=== PATIENT | female | born 1960 | race Caucasian/White ===

== ENCOUNTER 2017-05-08 18:03 | Inpatient (IN) | payer SELFPAY ==
--- NOTE | 2017-05-08 18:41 | RAD ---
PORTABLE CHEST ONE VIEW 05/08/17 at 5:51 p.m. HISTORY: Chest pain, dizziness. FINDINGS: Comparison made to earlier exam of 1:45 p.m. The heart size is normal. The lungs are expanded without focal areas of consolidation, pneumothorax or pleural effusions. IMPRESSION: No radiographic evidence of acute cardiopulmonary process. POS: [facility]
[2017-05-08] MEDS ORDERED: Nitroglycerin 2% Ointment 1 INCH/1 GM Packet ONE (18:45)
[2017-05-08] MEDS ORDERED: Acetaminophen 500 MG TAB ONE (19:01)
[2017-05-08 19:15] LABS: Troponin I Less than 0.010 ng/mL (< 0.028)
[2017-05-08] MEDS ORDERED: Enoxaparin Sodium 30 MG/0.3 ML SYRINGE ONE (19:37)
[2017-05-08] MEDS ORDERED: Enoxaparin Sodium 100 MG/ML SYRINGE ONE (19:37)
[2017-05-08] MEDS ORDERED: Acetaminophen 325 MG TAB PO PRN (20:32)
[2017-05-08] MEDS ORDERED: Nitroglycerin 0.4 MG TAB (25 Tab Bottle) SL PRN (20:32)
[2017-05-08] MEDS ORDERED: Ondansetron HCl/PF 4 MG/2 ML Vial IVP PRN (20:32)
[2017-05-08] MEDS ORDERED: Ondansetron ODT 4 MG TAB SL PRN (20:32)
--- NOTE | 2017-05-08 20:38 | PDOC.EVN ---
Event Note - Event Note Event Note: H&P Dictated 1. Unstable angina 2. HTN 3. Pain plan: see orders
[2017-05-08 21:34] LABS: Troponin I Less than 0.010 ng/mL (< 0.028)
[2017-05-08] MEDS ORDERED: Nitroglycerin 2% Ointment 1 INCH/1 GM Packet TOP SCH (22:00)
[2017-05-08] MEDS: HYDROcodone/Acetaminophen 5/325 mg Tablet PO PRN (22:44)
[2017-05-09 00:55] LABS: Troponin I 0.013 ng/mL (< 0.028)
[2017-05-09] MEDS: Nitroglycerin 2% Ointment 1 INCH/1 GM Packet TOP SCH ×4 (06:06→21:08)
[2017-05-09] MEDS: Carvedilol 6.25 MG TAB PO SCH ×2 (08:03→21:08)
[2017-05-09] MEDS: Aspirin 325 MG TAB PO SCH (08:03)
--- NOTE | 2017-05-09 08:04 | HP ---
DATE OF ADMISSION: 05/08/2017 CHIEF COMPLAINT: Chest pain. HISTORY OF PRESENT ILLNESS: The patient is a 56-year-old female with past medical history of hypert ension, now came to the hospital because of chest pain. The patient stated also he started having c hest pain 3 days back, intermittent, associated with dyspnea, substernal, radiates to the left shoul ronnie also, spasm, and to the back and shoulder blades spasm to tightness kind of pain 05/12, currentl y 2-3/, intermittent, then associated with some nausea also this morning and vomiting also complai ns of some dizziness with the chest pain. Patient's symptoms persisted that is why the patient came from outside ER and patient was found to have diffuse ST depressions, so patient was given a dose o f Lovenox. Repeat EKG showed some improvement in the ST depressions. The patient currently denies any pain at this time. PAST MEDICAL HISTORY: Hypertension. PAST SURGICAL HISTORY: Hysterectomy. ALLERGIES: No known drug allergies. MEDICATIONS: Reviewed. FAMILY HISTORY: Denies any heart problems. SOCIAL HISTORY: Denies smoking, denies alcohol, denies any drugs. REVIEW OF SYSTEMS: Constitutional: Denies any fever, denies any chills. Eyes: Denies any vision problems. Ears: De nies any hearing loss. Neck: Denies any neck pain. Cardiovascular: Positive for chest pain. Res piratory: Positive for dyspnea. Gastrointestinal: Positive for nausea, vomiting. Musculoskeletal : Denies any joint deformities. Cranial nerve system: Positive for dizziness. Psychiatric: ____ _ anxiety. Integumentary: Denies any rash. All other review of systems are reviewed and are negat candido. PHYSICAL EXAMINATION: CONSTITUTIONAL/VITAL SIGNS: At the time of H\T\P performed, blood pressure is 136/48, heart rate 68 , pulse ox 97%. GENERAL: The patient appears comfortable. HEENT: Pupils equal, round and reacting. Anterior nares patent. Nose normal. Ears normal. Teet h intact. Tongue is moist. NECK: Supple, no JVD. CARDIOVASCULAR SYSTEM: S1, S2 present. Regular rate and rhythm, no murmurs, no rubs, no gallops. RESPIRATORY SYSTEM: No wheezing, no rhonchi. Breath sounds bilaterally. GASTROINTESTINAL: Abdomen is soft, nontender, no guarding, no organomegaly, no masses felt. MUSCULOSKELETAL: No edema. CRANIAL NERVE SYSTEM: Awake, follows commands. Strength intact, sensory intact. PSYCHIATRIC: Mood appropriate at this time. GENITOURINARY: No suprapubic tenderness. No inguinal tenderness. INTEGUMENTARY: No rashes seen. LABORATORY DATA: At the time of H\T\P performed, troponin less than 0.010. BMP showed sodium 144, potassium 3.6, chloride 105, CO2 of 26, BUN of 17, creatinine 0.97, calcium 10.1. AST 21, ALT 17, a lbumin 4.5, globulin 3.4. White count 8.7, hemoglobin 13.4, platelet count is 254. EKG showed ST depressions in V4, V5 and V2. ASSESSMENT AND PLAN: The patient is 56-year-old female. 1. Unstable angina. Plan to continue nitro paste. Already given dose of Lovenox. We will admit p atient to the IMU for close monitoring. If the patient has recurrent chest pain, we will start the patient on nitro drip. We will place patient on nitro paste and we will continue aspirin and statin s. 2. Hypertension. Monitor blood pressures. Continue home blood pressure medications. 3. Pain, p.r.n. pain medications. The case was discussed in detail with the patient.
[2017-05-09] MEDS ORDERED: FLU VACC QS2017-18 36 mo. & older 0.5 ML SYRINGE IM ONE (09:00)
[2017-05-09 10:21] LABS: #Eosinphils 0.1 thou/uL (0.0-0.7); #Lymphocytes 2.4 thou/uL (1.20-3.40); #Monocytes 0.7 thou/uL (0.11-0.59); #Neutrophils 4.1 thou/uL (1.40-6.50); %Basophils 0.3 % (0.0-1.0); %Eosinophils 0.8 % (0.0-10.0); %Lymphocytes 33.4 % (21.0-51.0); %Monocytes 9.3 % (0.0-10.0); Hematocrit 41.1 % (36.0-47.0); Mean Platelet Volume 7.8 fL (7.4-10.4); Red Blood Cell (RBC) Count 4.36 mill/uL (4.20-5.40); White Blood Cell (WBC) Count 7.2 thou/uL (4.8-10.8)
[2017-05-09 10:43] LABS: Anion Gap 12 mmol/L (10-20); BUN (Urea Nitrogen) 21 mg/dL (9.8-20.1); Calc. Creatinine Clearance 121 mL/min (70-130); Calcium 9.6 mg/dL (7.8-10.44); Carbon Dioxide 24 mmol/L (22-29); Chloride 107 mmol/L (98-107); Estimated GFR-MDRD 64
[2017-05-09] MEDS: HYDROcodone/Acetaminophen 5/325 mg Tablet PO PRN ×2 (11:57→23:17)
[2017-05-09] MEDS ORDERED: Lisinopril/Hydrochlorothiazide 10 mg/12.5 mg Tablet PO SCH (14:30)
--- NOTE | 2017-05-09 14:36 | CON ---
CARDIOLOGY CONSULTATION REPORT DATE OF CONSULTATION: 05/09/2017 ROOM #: B3. ADMITTING DOCTOR: Dr. Velazquez. PRIMARY CARE PHYSICIAN: Dr. Mera CONSULTING DOCTOR: Dr. Samano. REASON FOR CARDIOLOGY CONSULTATION: Unstable angina. HISTORY OF PRESENT ILLNESS: Ms. Lott is a 56 years old female with significant history of hypertension. The patient experienced an achy-like chest pain in her chest with some pressure between the shoulder blade since last Thursday, and then 05/08 she started feeling heaviness along with those symptoms. She also started having a pounding-like sensation to the back of neck and between the shoulder blade all morning yesterday on 05/08/2017 while she was working. So, in the afternoon, she decided to present to the [facility] for further evaluation and treatment. She also has nausea, vomiting, fatigue, and shortness of breath. She denies any dizziness or numbness in the left arm or diaphoresis at that time. At this moment, during the assessment, she still feels heaviness-like discomfort in her chest and feels nauseated and also pounding-like sensation between the shoulder blade. She does not have any significant cardiac-related history and she never had any cardiac studies prior to this admission. However, she has a significant family history of myocardial infarction. Two of her sisters underwent stent placement when they were under the age of 60. The patient's noticed some edema around the bilateral ankles end of the day, almost every day, but resolved in the next morning. PAST MEDICAL HISTORY: 1. Hypertension. 2. Asthma. 3. Common cold for 1 month, and she is still having cough with clear sputum. 4. Seasonal allergies. PAST SURGICAL HISTORY: Total hysterectomy. FAMILY HISTORY: Significant for coronary artery disease in her both paternal and maternal sides. She had 2 sisters who have a history of multiple stents when they were in their 40s and 50s. There are hypertension and diabetes history in her maternal side. SOCIAL HISTORY: She is . She has one son, who is alive and well. She denies any smoke, alcohol, or illicit drug abuse. ALLERGIES: She has no known drug allergies. HOME MEDICATIONS: Lisinopril/hydrochlorothiazide 10 mg/12.5 mg once a day, aspirin 81 mg once a day, albuterol as needed. REVIEW OF SYSTEMS: The following complete review of systems was negative, unless otherwise mentioned in the HPI or below. Constitutional: Weight loss or weight gain, sense of well being, ability to conduct usual activities, exercise tolerance. Skin: Rash, itching, changes in hair growth or loss, nail change, breast lump, tenderness, swelling, nipple discharge. Eyes: She wears reading glasses, but negative to vision change, double vision, tearing, blind spots, pain. HENT: She is having a headache, at this moment, that is possible due to Nitro-patch; however, she denies any history of headache last 3 months and denied vertigo, lightheadedness, dizziness, nose bleeding, cold, obstruction. No other discharge, dental difficulty, gingival bleeding, dentures , neck stiffness, pain, tenderness, mass in the thyroid or other areas. Cardiovascular: Prior to this admission until last Thursday, she denies any precordial pain, substernal distress, palpitations, syncope, dyspnea on exertion , orthopnea, nocturnal dyspnea, edema, cyanosis, heart murmurs, claudication. Respiratory: Wheezing, stridor, hemoptysis. Gastrointestinal: Poor appetite, dysphagia, indigestion, abdominal pain, heartburn, nausea or vomiting before last Thursday, jaundice, constipation, diarrhea, abnormal stool, recent change in the bowel habit or hemorrhoid. Genitourinary: Urgency, frequency, dysuria, nocturia, hematuria, polyuria, oliguria, unusual color of urine. Musculoskeletal: Pain, swelling, redness, or heat of muscle or joint, limitation of motion, muscular weakness, atrophy, cramps. Neurologic: Convulsion seizure, paralyses, tremor, incoordination. Psychiatric: Emotional problem, anxiety, depression, previous psychiatric care, unusual perception, hallucination. PHYSICAL EXAMINATION: VITAL SIGNS: Blood pressure 162/60, heart rate 64 with sinus rhythm, respiratory rate 18, temperature 98.3, oxygen level 96% with room air. GENERAL: Well-developed, well-nourished, without any acute distress. HEAD: Normocephalic, atraumatic. EYES: Extraocular muscle movements are intact. ENT: Oral and nasal mucosa are moist without lesion. NECK: No JVD. Neck is supple and normal range of motion. LUNGS: Clear to auscultate bilaterally. No wheezing, rales, or rhonchi noted. CARDIOVASCULAR: Regular rate and rhythm, normal S1, S2. There are no S3 or S4. There is murmur on the right upper sternal border, but negative to hives, thrill, bruits, or rubs. There are 2+ pulses in bilateral dorsal pedis, posterior tibial, popliteal and femoral arteries. Carotid pulse present. No edema in the bilateral lower extremities. ABDOMEN: Soft and nontender or mass to palpate, nondistended. Bowel sounds are present. MUSCULOSKELETAL: Able to move all extremities. SKIN: Warm and dry. No skin rash, lesion, or bruise noted. NEUROLOGIC: Alert, oriented x4, awake, normal affect, nonfocal. PSYCHIATRIC: Mood and affect are normal. IMAGIN-lead EKG in ER showing sinus rhythm, minimal ST-depression, but is 1 mm. LABORATORY DATA: WBC 7.2, hemoglobin 13.3, hematocrit 41.1, platelets 228. Chemistry: Sodium 139, potassium 4.1, BUN 21, creatinine 0.90, glucose 78, and troponins less than 0.01 x2 and the third one is 0.013, total cholesterol 183, triglycerides 76, LDL 127, HDL 41, and the chest x-ray showing no evidence of acute cardiopulmonary process, and the echocardiogram was taken today and the result is pending at this moment. ASSESSMENT AND PLAN: 1. Unstable angina. Although patient's cardiac enzymes and troponin were negative, due to patient's significant family history of myocardial infarction and the patient's current symptoms, a stress test is going to be ordered today. At this moment, the patient is on aspirin 325 mg daily, beta deondre, and Nitro-paste. 2. Hypertension. Her blood pressure is relatively stable except last reading. At this moment, she is on Carvedilol 6.25 mg twice a day. We my resume her current home medications if needed. 3. Asthma. Her condition is stable at this moment. We would like to continue to monitor. 4. Murmur. Echocardiogram was taken today and that result is pending at this moment. We would like to adjust the patient's plan of care depended on the patient's echocardiogram result. Thank you very much for allowing the Cardiology service to participate in care of this patient. We will follow along with the patient's care team and make further recommendations as appropriate. LUDIN
--- NOTE | 2017-05-09 15:55 | CON ---
DATE OF CONSULTATION: 05/09/2017 INDICATION FOR CONSULTATION: A 56-year-old female with chest pain, abnormal EKG findings. HISTORY OF PRESENT ILLNESS: This is a very pleasant 56-year-old female with a history of hypertensi on, who presented to the hospital with chest pain. She had some EKG changes, which showed some evid ence of ST-segment depression, but no ST-segment elevation. Her enzymes have been negative. The pa in started several days ago. Approximately a month ago, she did have a cough and possibly pneumonia , and had some associated pain with this. She also has been having some nausea associated with the chest discomfort. She was given Lovenox in the emergency room and had an improvement in the ST-segm ent depression. She is now presently in the Intensive Care Unit. She has been ruled out for myocar dial infarction. At this time, she still continues to have some chest discomfort, which she describ es at times being sharp pain and sometimes she describes as being pressure, and she also has some di scomfort underneath the left inframammary area. Otherwise, she remains stable from a cardiac standp oint. She does have some problems with hypertension. Her vital signs showed blood pressure is anyw here between 117/55 to 162/60. She did have nitroglycerin paste on, this was removed due to the hea daches and she may need to have further medications. She was on SOHAM inhibitors in the past, but the se have been held at this time. We would need to reinstate these medications and she will need to h ave nitroglycerin if the chest discomfort continues or increases. PAST MEDICAL HISTORY: Significant for the hypertension. She has also had a history of possible pne umonia recently. She has had a hysterectomy. She has a history of possible hypercholesterolemia. She has had 2 episodes of pneumonia. ALLERGIES: She has no known drug allergies. MEDICATIONS: At home include lisinopril/hydrochlorothiazide, aspirin, and also allergy medications. FAMILY HISTORY: She does have some history of heart disease in her family. SOCIAL HISTORY: She has no alcohol or tobacco abuse. She works as a caregiver. REVIEW OF SYSTEMS: A 12-point review of systems was relatively unremarkable except what was noted i n the history of present illness. PHYSICAL EXAMINATION: GENERAL: Reveals a well-developed, well-nourished female, who is in no acute distress at this time. VITAL SIGNS: Her blood pressure, at this time, is 162/60, earlier it was 124/57, her heart rate is in the 50s-60s and she has a normal sinus rhythm, respiratory rate 16-18 without significant problem s. She is afebrile. HEENT: Exam shows the head to be normocephalic and atraumatic. Carotid pulses are present without any bruits. CHEST: Clear to auscultation. Denies any rales, rhonchi, or wheezing. CARDIOVASCULAR: Exam reveals a regular rate and rhythm, normal S1 and S2. There is no S3, S4. The re were no significant murmurs, heaves, thrills, bruits, or rubs noted. ABDOMEN: Exam shows obesity with positive bowel sounds. No organomegaly or masses were noted. Fem oral pulses are present. EXTREMITIES: Shows no clubbing, cyanosis, or edema. Pedal pulses are also present. NEUROLOGIC: The patient appears to be fully intact. SKIN: Warm and dry. LABORATORY DATA: Her cardiac enzymes have been negative. Her hemoglobin is 13.3. Creatinine is 0. 9, potassium 4.1. Her blood sugar is only 78. LDL was 127. IMPRESSION: 1. Chest pain, somewhat atypical, but does have some EKG changes. For someone who has had chest pa in for several days and that she continues to have some chest discomfort, the enzymes still remain n egative. Given her family history as well as her presentation with the EKG findings, it may be best to proceed with a cardiac catheterization to rule out evidence of underlying coronary artery diseas e since a stress test in her case may still miss 10%-15% of the population. 2. History of hypertension. We will continue her medications. She has been placed on nitroglyceri n, does not seem to be able to tolerate this very well. We will also put her back on her SOHAM inhibi tor with the hydrochlorothiazide. 3. History of hypercholesterolemia. Her cholesterol level, LDL, was 127, and we will need to initi ate statin medications. I did explain to her the procedure and the risks as far as cardiac catheterization was concerned to include bleeding, infection, possibility of myocardial infarction, CVA, renal insufficiency, allergi c contrast reaction, she understands, and even the possibility of , and we will plan for a card iac catheterization on Thursday unless the patient becomes unstable in the interim.
--- NOTE | 2017-05-09 17:01 | PDOC.PN ---
- Subjective Encounter Start Date: 05/09/17 Encounter Start Time: 10:20 Pt seen for followup re: chest pain. Denies nausea or vomiting. Reports on and off chest pain. No vomiting. No fevers. - Objective Vital Signs & Weight: Vital Signs (12 hours) Temp Pulse Resp BP Pulse Ox 05/09/17 15:00 97.7 F 54 L 20 134/56 L 94 L 05/09/17 14:49 64 05/09/17 11:00 98.3 F 64 18 162/60 H 96 05/09/17 08:00 97.6 F 58 L 18 98 05/09/17 07:00 97.6 F 58 L 18 137/55 L 98 Weight Admit Weight 247 lb Weight 247 lb 1.6 oz I&O: 05/08/17 05/09/17 05/10/17 06:59 06:59 06:59 Intake Total 30 Output Total 180 Balance -150 Result Diagrams: 05/09/17 09:56 05/09/17 09:56 Phys Exam - Physical Examination Morbid obesity HEENT: PERRLA, moist MMs, sclera anicteric, oral pharynx no lesions Neck: no JVD, supple, full ROM Respiratory: no wheezing, no rales, no rhonchi, clear to auscultation bilateral Cardiovascular: RRR, no rub Gastrointestinal: soft, non-tender, positive bowel sounds distention+ Musculoskeletal: no edema, pulses present Neurological: non-focal, normal sensation, moves all 4 limbs Lymphatic: no nodes Psychiatric: normal affect, A&O x 3 Skin: no rash, normal turgor, cap refill <2 seconds Dx/Plan (1) Chest pain Code(s): R07.9 - CHEST PAIN, UNSPECIFIED Status: Acute (2) Unstable angina Status: Suspected (3) HTN (hypertension) Code(s): I10 - ESSENTIAL (PRIMARY) HYPERTENSION Status: Chronic (4) Dyslipidemia Code(s): E78.5 - HYPERLIPIDEMIA, UNSPECIFIED Status: Chronic - Plan * . Chest pain on and off, await echo and cardiology input.\ Start statin. Monitor vital signs, titrate antihypertensives as needed. Review of Systems - Review of Systems Constitutional: negative: Fever, Chills, Sweats, Weakness, Malaise Cardiovascular: Chest Pain, Palpitations. negative: Orthopnea, Paroxysmal Noc. Dyspnea, Edema, Light Headedness Gastrointestinal: Nausea. negative: Vomiting, Abdominal Pain, Diarrhea, Constipation, Melena, Hematochezia Genitourinary: negative: Dysuria, Frequency, Incontinence, Hematuria, Retention Skin: negative: Rash, Lesions, Ruddy, Bruising - Medications/Allergies Allergies/Adverse Reactions: Allergies Allergy/AdvReac Type Severity Reaction Status Date / Time No Known Allergies Allergy Verified 05/08/17 21:12 Medications: Current Medications Hydrocodone Bitart/Acetaminophen ([place] 5/325) 1 tab PO Q4H PRN PRN Reason: Mild Pain (1-3) Last Admin: 05/09/17 11:57 Dose: 1 tab Aspirin (Aspirin) 325 mg PO DAILY [facility] Last Admin: 05/09/17 08:03 Dose: 325 mg Carvedilol (Coreg) 6.25 mg PO BID [facility] Last Admin: 05/09/17 08:03 Dose: 6.25 mg Lisinopril/HCTZ (Prinizide 10-12.5) 1 tab PO DAILY [facility] Morphine Sulfate (Morphine Sulfate) 2 mg SLOW IVP Q4H PRN PRN Reason: Moderate to Severe Pain (6-10) Nitroglycerin (Nitro-Bid 2% Ointment) 0.5 inch TOP Q8HR [facility] Last Admin: 05/09/17 14:53 Dose: 0.5 inch Sodium Chloride (Flush - Normal Saline) 10 ml IVF PRN PRN PRN Reason: Saline Flush
--- NOTE | 2017-05-09 17:51 | CON ---
DATE OF CONSULTATION: 05/09/2017 HISTORY OF PRESENT ILLNESS: Ms. Lott is a very pleasant 56-year-old female. She has a history of exertional chest pain radiating to her left shoulder for several months. This has been occurring with increasing frequency and severity. It typically last 5-10 minutes. It has been for the most part always with exertion. She reached a point where she said she could no t tolerate because this was happening frequently yesterday, so she presented to the emergency room a nd subsequently was admitted. Her only complaint now is a headache. She denies chest pain. PAST MEDICAL HISTORY: Remarkable for hypertension and hysterectomy. FAMILY HISTORY: Positive for coronary artery disease at a young age. She has a sister that had cor onary artery disease at 42. SOCIAL HISTORY: She is a nonsmoker, nondrinker. REVIEW OF SYSTEMS: Otherwise negative. PHYSICAL EXAMINATION: GENERAL: She is afebrile, heart rate 54, respiratory rate 20, oximetry is 94, blood pressure 134/56 . HEENT: Pupils are equal. Sclerae is anicteric. NECK: Supple. LUNGS: Clear. HEART: Regular rhythm. S1 and S2 are normal. ABDOMEN: Soft and nontender. EXTREMITIES: Without asymmetry. LABORATORY DATA: White count 7.2, hemoglobin 13.3, platelets 228. Sodium 139, potassium 4.1, chlor vaishali 107, bicarbonate 24, BUN 21, creatinine 0.9, glucose 78. IMPRESSION AND PLAN: Unstable angina. History certainly suggestive of an increasing frequency edgar allegra of angina. I believe cardiac catheterization is planned. I will be happy to follow with the ot her physicians caring for her.
[2017-05-09] MEDS ORDERED: Ondansetron HCl/PF 4 MG/2 ML Vial SLOW IVP PRN (18:36)
[2017-05-09] MEDS: Atorvastatin Calcium 20 MG TAB PO SCH (21:08)
[2017-05-10] MEDS ORDERED: Ondansetron HCl/PF 4 MG/2 ML Vial SLOW IVP PRN (00:02)
[2017-05-10] MEDS: Melatonin 3 MG TAB PO PRN ×2 (00:14→21:02)
[2017-05-10 04:48] LABS: #Eosinphils 0.1 thou/uL (0.0-0.7); #Lymphocytes 2.2 thou/uL (1.20-3.40); #Monocytes 0.6 thou/uL (0.11-0.59); #Neutrophils 4.5 thou/uL (1.40-6.50); %Basophils 0.6 % (0.0-1.0); %Eosinophils 1.8 % (0.0-10.0); %Lymphocytes 29.6 % (21.0-51.0); %Monocytes 7.9 % (0.0-10.0); Hematocrit 38.7 % (36.0-47.0); Mean Platelet Volume 7.4 fL (7.4-10.4); Red Blood Cell (RBC) Count 4.16 mill/uL (4.20-5.40); White Blood Cell (WBC) Count 7.5 thou/uL (4.8-10.8)
[2017-05-10] MEDS: Nitroglycerin 2% Ointment 1 INCH/1 GM Packet TOP SCH ×3 (05:08→21:02)
[2017-05-10 05:12] LABS: Anion Gap 9 mmol/L (10-20); BUN (Urea Nitrogen) 25 mg/dL (9.8-20.1); Calc. Creatinine Clearance 83 mL/min (70-130); Calcium 9.1 mg/dL (7.8-10.44); Carbon Dioxide 28 mmol/L (22-29); Chloride 106 mmol/L (98-107); Estimated GFR-MDRD 42
[2017-05-10] MEDS: Aspirin 325 MG TAB PO SCH (09:04)
[2017-05-10] MEDS: Lisinopril/Hydrochlorothiazide 10 mg/12.5 mg Tablet PO SCH (09:04)
[2017-05-10] MEDS: Carvedilol 6.25 MG TAB PO SCH (09:04)
--- NOTE | 2017-05-10 13:01 | PDOC.PN ---
- Subjective Encounter Start Date: 05/10/17 Encounter Start Time: 09:40 Pt seen for followup re: chest pain. Reports occ chest pain. No nausea or vomiting. No fevers. - Objective MAR Reviewed: Yes Vital Signs & Weight: Vital Signs (12 hours) Temp Pulse Resp BP BP Pulse Ox 05/10/17 11:55 97.4 F L 52 L 14 107/59 L 96 05/10/17 09:04 55 L 112/59 L 05/10/17 08:00 97.8 F 55 L 14 94 L 05/10/17 07:42 97.8 F 55 L 14 112/59 L 94 L 05/10/17 04:30 98.3 F 50 L 18 124/61 96 Weight Admit Weight 247 lb Weight 247 lb I&O: 05/09/17 05/10/17 05/11/17 06:59 06:59 06:59 Intake Total 30 1100 Output Total 180 Balance -150 1100 Result Diagrams: 05/10/17 04:26 05/10/17 04:26 EKG Reviewed by me: Yes (Tele: NSR) Phys Exam - Physical Examination Constitutional: NAD HEENT: moist MMs, oral pharynx no lesions Neck: supple Respiratory: no wheezing, no rales, no rhonchi, clear to auscultation bilateral Cardiovascular: RRR, no rub Gastrointestinal: soft, non-tender, no distention, positive bowel sounds Musculoskeletal: pulses present Neurological: non-focal, normal sensation, moves all 4 limbs Lymphatic: no nodes Psychiatric: normal affect, A&O x 3 Skin: no rash, normal turgor, cap refill <2 seconds Dx/Plan (1) Chest pain Code(s): R07.9 - CHEST PAIN, UNSPECIFIED Status: Acute (2) Unstable angina Status: Suspected (3) HTN (hypertension) Code(s): I10 - ESSENTIAL (PRIMARY) HYPERTENSION Status: Chronic (4) Dyslipidemia Code(s): E78.5 - HYPERLIPIDEMIA, UNSPECIFIED Status: Chronic - Plan DVT proph w/lovenox * . Continue to monitor on telemetry. Continue aspirin, Lovenox. Monitor vital signs, titrate antihypertensives as neeed. For cath tomorrow. Review of Systems - Review of Systems Constitutional: negative: Fever, Chills, Sweats, Weakness, Malaise ENT: negative: Ear Pain, Ear Discharge, Nose Pain, Nose Discharge, Nose Congestion, Mouth Pain, Mouth Swelling, Throat Pain, Throat Swelling, Other Respiratory: negative: Cough, Dry, Shortness of Breath, Hemoptysis, SOB with Excertion, Pleuritic Pain, Sputum, Wheezing Cardiovascular: Chest Pain. negative: Palpitations, Orthopnea, Paroxysmal Noc. Dyspnea, Edema, Light Headedness Gastrointestinal: negative: Nausea, Vomiting, Abdominal Pain, Diarrhea, Constipation, Melena, Hematochezia - Medications/Allergies Allergies/Adverse Reactions: Allergies Allergy/AdvReac Type Severity Reaction Status Date / Time No Known Allergies Allergy Verified 05/08/17 21:12 Medications: Current Medications Hydrocodone Bitart/Acetaminophen ([place] 5/325) 1 tab PO Q4H PRN PRN Reason: Mild Pain (1-3) Last Admin: 05/09/17 23:17 Dose: 1 tab Aspirin (Aspirin) 325 mg PO DAILY [facility] Last Admin: 05/10/17 09:04 Dose: 325 mg Atorvastatin Calcium (Lipitor) 20 mg PO HS [facility] Last Admin: 05/09/17 21:08 Dose: 20 mg Carvedilol (Coreg) 6.25 mg PO BID [facility] Last Admin: 05/10/17 09:04 Dose: 6.25 mg Lisinopril/HCTZ (Prinizide 10-12.5) 1 tab PO DAILY [facility] Last Admin: 05/10/17 09:04 Dose: 1 tab Melatonin (Melatonin) 6 mg PO HSPRN PRN PRN Reason: Insomnia Last Admin: 05/10/17 00:14 Dose: 6 mg Morphine Sulfate (Morphine Sulfate) 2 mg SLOW IVP Q4H PRN PRN Reason: Moderate to Severe Pain (6-10) Nitroglycerin (Nitro-Bid 2% Ointment) 0.5 inch TOP Q8HR [facility] Last Admin: 05/10/17 05:08 Dose: 0.5 inch Ondansetron HCl (Zofran) 4 mg SLOW IVP Q4H PRN PRN Reason: Nausea/Vomiting Last Admin: 05/10/17 00:14 Dose: 4 mg Sodium Chloride (Flush - Normal Saline) 10 ml IVF PRN PRN PRN Reason: Saline Flush
--- NOTE | 2017-05-10 13:41 | PDOC.CTH ---
<Jil Harkins - Last Filed: 05/10/17 13:39> Cardiology Progress Note - Subjective The pt was seen and examined. No overnight events. No cardiac complaints. She felt mild discomfort in her chest and mild dizziness in AM while she was having sponge bath. At this moment, she denied any cardiac complaints. - Objective Vital Signs Temp Pulse Resp BP BP Pulse Ox 05/10/17 11:55 97.4 F L 52 L 14 107/59 L 96 05/10/17 09:04 55 L 112/59 L 05/10/17 08:00 97.8 F 55 L 14 94 L 05/10/17 07:42 97.8 F 55 L 14 112/59 L 94 L 05/10/17 04:30 98.3 F 50 L 18 124/61 96 Admit Weight 247 lb Weight 247 lb 05/09/17 05/10/17 05/11/17 06:59 06:59 06:59 Intake Total 30 1100 Output Total 180 Balance -150 1100 - Physical Examination General/Neuro: alert & oriented x3 Neck: no JVD present Lungs: CTA Heart: RRR Abdomen: soft Extremities: other: (No edema) - Telemetry Telemetry Rhythm: SB and SR 50-60s - Labs Result Diagrams: 05/10/17 04:26 05/10/17 04:26 Troponin/CKMB Troponin I 0.013 ng/mL (< 0.028) 05/09/17 00:23 - Assessment/Plan 1. Chest pain - Cardiac cath tomorrow by Dr Samano; on ASA, BBlocker and SOHAM med; The pt denied any questions or concerns related to cardiac cath 2. HTN - decrease Coreg from 6.25 mg to 3.125mg BID for dizziness 3. Dyslipidemia - on Statin medication MAR Reviewed Review of Systems - Review of Systems Constitutional: reports: no symptoms reported EENTM: reports: no symptoms reported Respiratory: reports: no symptoms reported Cardiac (ROS): reports: no symptoms reported ABD/GI: reports: no symptoms reported : reports: no symptoms reported Musculoskeletal: reports: no symptoms reported Skin: reports: no symptoms reported <Quang Samano - Last Filed: 05/10/17 18:30> Cardiology Progress Note - Objective Vital Signs Temp Pulse Resp BP BP Pulse Ox 05/10/17 16:00 97.4 F L 58 L 18 143/71 H 98 05/10/17 11:55 97.4 F L 52 L 14 107/59 L 96 05/10/17 09:04 55 L 112/59 L 05/10/17 08:00 97.8 F 55 L 14 94 L 05/10/17 07:42 97.8 F 55 L 14 112/59 L 94 L Admit Weight 247 lb Weight 247 lb 05/09/17 05/10/17 05/11/17 06:59 06:59 06:59 Intake Total 30 1100 Output Total 180 Balance -150 1100 - Labs Result Diagrams: 05/10/17 04:26 05/10/17 04:26 Troponin/CKMB Troponin I 0.013 ng/mL (< 0.028) 05/09/17 00:23 - Assessment/Plan Pt. was seen and eval. by me. I agree with the A\P by the S[employer]IOR [employer] DEVEL[employer]CHIT[employer]. We discussed the cardiac cath again and she is ready to proceed.
--- NOTE | 2017-05-10 15:00 | PRG ---
DATE OF SERVICE: 05/10/2017 Stefania Lott has been moved out to the intermediate care unit. She remains in sinus rhythm. Her bl ood pressures have been stable. Her lab work is unchanged essentially a creatinine of 1.3. She is tentatively on the schedule for cardiac catheterization. We will await these results. If she is found to have some surgical coronary disease, then she will need pulmonary function testin g prior to surgery.
[2017-05-10] MEDS ORDERED: Communication Order-Pharmacy FS SCH (18:30)
[2017-05-10] MEDS: Carvedilol 3.125 MG TAB PO SCH (21:03)
[2017-05-10] MEDS: Atorvastatin Calcium 20 MG TAB PO SCH (21:03)
[2017-05-11 04:39] LABS: #Eosinphils 0.1 thou/uL (0.0-0.7); #Lymphocytes 2.1 thou/uL (1.20-3.40); #Monocytes 0.5 thou/uL (0.11-0.59); #Neutrophils 2.7 thou/uL (1.40-6.50); %Basophils 0.4 % (0.0-1.0); %Eosinophils 2.4 % (0.0-10.0); %Lymphocytes 38.3 % (21.0-51.0); %Monocytes 9.6 % (0.0-10.0); Hematocrit 40.1 % (36.0-47.0); Mean Platelet Volume 8.2 fL (7.4-10.4); Red Blood Cell (RBC) Count 4.27 mill/uL (4.20-5.40); White Blood Cell (WBC) Count 5.5 thou/uL (4.8-10.8)
[2017-05-11 04:51] LABS: Anion Gap 11 mmol/L (10-20); BUN (Urea Nitrogen) 23 mg/dL (9.8-20.1); Calc. Creatinine Clearance 121 mL/min (70-130); Calcium 9.5 mg/dL (7.8-10.44); Carbon Dioxide 29 mmol/L (22-29); Chloride 104 mmol/L (98-107); Estimated GFR-MDRD 63
[2017-05-11] MEDS: Carvedilol 3.125 MG TAB PO SCH ×2 (05:41→21:22)
[2017-05-11] MEDS: Lisinopril/Hydrochlorothiazide 10 mg/12.5 mg Tablet PO SCH (05:42)
[2017-05-11] MEDS: Nitroglycerin 2% Ointment 1 INCH/1 GM Packet TOP SCH ×3 (07:13→21:21)
[2017-05-11] MEDS: Aspirin 325 MG TAB PO SCH (08:17)
[2017-05-11] MEDS ORDERED: Heparin 10,000 UNITS/1 ML VIAL ONE (10:49)
[2017-05-11] MEDS ORDERED: Nitroglycerin 100MG/250ML BOT 250 ML ONE (10:49)
--- NOTE | 2017-05-11 10:59 | PDOC.PN ---
- Subjective Encounter Start Date: 05/11/17 Encounter Start Time: 08:20 Pt seen for followup re; chest pain. Denies nausea or vomiting. Had chest pain yesterday. No fevers or chills. - Objective MAR Reviewed: Yes Vital Signs & Weight: Vital Signs (12 hours) Temp Pulse Resp BP BP Pulse Ox 05/11/17 08:00 97.4 F L 48 L 18 96 05/11/17 07:33 97.4 F L 48 L 18 138/60 96 05/11/17 05:42 54 L 144/65 H 05/11/17 04:07 97.9 F 50 L 16 144/65 H 96 05/10/17 23:38 97.9 F 57 L 18 140/60 98 Weight Admit Weight 247 lb Weight 251 lb I&O: 05/10/17 05/11/17 05/12/17 06:59 06:59 06:59 Intake Total 1100 1210 Balance 1100 1210 Result Diagrams: 05/11/17 04:20 05/11/17 04:20 EKG Reviewed by me: Yes (Tele: sinus bradycardia) Phys Exam - Physical Examination Obese HEENT: moist MMs, oral pharynx no lesions Neck: supple Respiratory: no wheezing, no rales, no rhonchi, clear to auscultation bilateral Cardiovascular: RRR, no rub Gastrointestinal: soft, non-tender, no distention, positive bowel sounds Musculoskeletal: no edema, pulses present Neurological: moves all 4 limbs Psychiatric: normal affect, A&O x 3 Skin: no rash, normal turgor, cap refill <2 seconds Dx/Plan (1) Chest pain Code(s): R07.9 - CHEST PAIN, UNSPECIFIED Status: Acute (2) Unstable angina Status: Suspected (3) HTN (hypertension) Code(s): I10 - ESSENTIAL (PRIMARY) HYPERTENSION Status: Chronic (4) Dyslipidemia Code(s): E78.5 - HYPERLIPIDEMIA, UNSPECIFIED Status: Chronic - Plan * . Pt [id number] cath today. Further management depending on the study outcome. Continue aspirin, heparin. Review of Systems - Review of Systems Constitutional: negative: Fever, Chills, Sweats, Weakness, Malaise Respiratory: negative: Cough, Dry, Shortness of Breath, Hemoptysis, SOB with Excertion, Pleuritic Pain, Sputum, Wheezing Cardiovascular: negative: Chest Pain, Palpitations, Orthopnea, Paroxysmal Noc. Dyspnea, Edema, Light Headedness - Medications/Allergies Allergies/Adverse Reactions: Allergies Allergy/AdvReac Type Severity Reaction Status Date / Time No Known Allergies Allergy Verified 05/08/17 21:12 Medications: Current Medications Hydrocodone Bitart/Acetaminophen ([place] 5/325) 1 tab PO Q4H PRN PRN Reason: Mild Pain (1-3) Last Admin: 05/09/17 23:17 Dose: 1 tab Aspirin (Aspirin) 325 mg PO DAILY [facility] Last Admin: 05/11/17 08:17 Dose: 325 mg Atorvastatin Calcium (Lipitor) 20 mg PO HS [facility] Last Admin: 05/10/17 21:03 Dose: 20 mg Carvedilol (Coreg) 3.125 mg PO BID [facility] Last Admin: 05/11/17 05:41 Dose: 3.125 mg Lisinopril/HCTZ (Prinizide 10-12.5) 1 tab PO DAILY [facility] Last Admin: 05/11/17 05:42 Dose: 1 tab Melatonin (Melatonin) 6 mg PO HSPRN PRN PRN Reason: Insomnia Last Admin: 05/10/17 21:02 Dose: 6 mg Miscellaneous Information (Communication Order-Pharmacy) 0 each FS ONE [facility] Stop: 05/11/17 18:31 Morphine Sulfate (Morphine Sulfate) 2 mg SLOW IVP Q4H PRN PRN Reason: Moderate to Severe Pain (6-10) Nitroglycerin (Nitro-Bid 2% Ointment) 0.5 inch TOP Q8HR [facility] Last Admin: 05/11/17 07:13 Dose: Not Given Ondansetron HCl (Zofran) 4 mg SLOW IVP Q4H PRN PRN Reason: Nausea/Vomiting Last Admin: 05/10/17 00:14 Dose: 4 mg Sodium Chloride (Flush - Normal Saline) 10 ml IVF PRN PRN PRN Reason: Saline Flush
[2017-05-11] MEDS ORDERED: traMADol HCl 50 MG TAB PO PRN (11:30)
[2017-05-11] MEDS ORDERED: Acetaminophen/Codeine 30-300mg Tablet PO PRN ×2 (11:30)
[2017-05-11] MEDS ORDERED: Sodium Chloride 0.9% 200 ML IV SCH (11:30)
[2017-05-11] MEDS ORDERED: Nitroglycerin 0.4 MG TAB (25 Tab Bottle) SL PRN (11:30)
[2017-05-11] MEDS ORDERED: Iopamidol 370 76% 100 ML VIAL ONE (15:20)
[2017-05-11] MEDS ORDERED: ISOVUE-370 76%-LOCM 1 ML ONE (16:36)
--- NOTE | 2017-05-11 18:57 | CT ---
CT ANGIOGRAM THORAX WITH IV CONTRAST: Date: 05-11-17 History: Shortness of breath, chest pain. Patient had heart catheterization earlier today. FINDINGS: The thoracic aorta is normal in caliber without evidence of an aortic dissection. No filling defects are seen within a central pulmonary arteries, but there is some optimal opacifica tion of the submental and subsegmental pulmonary arteries due to contrast leaking at IV site. Repeat imaging was not performed due to patient history of recent heart catheterization as well as contras t for this examination. Calcified granuloma is seen in the right middle lobe. There is linear scarring versus atelectasis in the left lower lobe. The lungs are otherwise clear. There is no evidence of lymphadenopathy. There are prominent calcified subcarinal lymph nodes identified. Visualized upper abdomen has a grossly normal CT appearance. IMPRESSION: 1. Suboptimal evaluation of the segmental and subsegmental pulmonary arteries due to timing of contr ast bolus as well as leaking of contrast at the IV site during injection. As a result, pulmonary emb olus at the segmental or subsegmental level cannot be excluded. There is no pulmonary embolus involv ing the central pulmonary arteries. 2. Thoracic aorta is normal in caliber without evidence of aortic dissection. POS: [facility]
[2017-05-11] MEDS: Atorvastatin Calcium 20 MG TAB PO SCH (21:21)
[2017-05-12 05:06] LABS: #Eosinphils 0.1 thou/uL (0.0-0.7); #Lymphocytes 2.5 thou/uL (1.20-3.40); #Monocytes 0.7 thou/uL (0.11-0.59); #Neutrophils 3.6 thou/uL (1.40-6.50); %Basophils 0.3 % (0.0-1.0); %Eosinophils 1.9 % (0.0-10.0); %Lymphocytes 35.9 % (21.0-51.0); %Monocytes 10.6 % (0.0-10.0); Hematocrit 40.6 % (36.0-47.0); Mean Platelet Volume 8.1 fL (7.4-10.4); Red Blood Cell (RBC) Count 4.38 mill/uL (4.20-5.40)
[2017-05-12 05:35] LABS: Anion Gap 14 mmol/L (10-20); BUN (Urea Nitrogen) 25 mg/dL (9.8-20.1); Calc. Creatinine Clearance 85 mL/min (70-130); Calcium 9.6 mg/dL (7.8-10.44); Carbon Dioxide 26 mmol/L (22-29); Chloride 103 mmol/L (98-107); Estimated GFR-MDRD 42
[2017-05-12] MEDS: Nitroglycerin 2% Ointment 1 INCH/1 GM Packet TOP SCH (05:44)
--- NOTE | 2017-05-12 08:28 | PDOC.CTH ---
Cardiology Progress Note - Subjective The pt was seen and examined. No cardiac complaints. No Overnight events. - Objective Vital Signs Temp Pulse Resp BP BP Pulse Ox 05/12/17 08:00 97.8 F 50 L 16 119/62 96 05/12/17 04:55 97.6 F 50 L 18 129/70 96 05/11/17 23:55 98.2 F 54 L 20 131/73 96 05/11/17 20:45 98.3 F 55 L 18 97 05/11/17 20:30 98.3 F 55 L 18 123/70 97 Admit Weight 247 lb Weight 249 lb 3.2 oz 05/11/17 05/12/17 05/13/17 06:59 06:59 06:59 Intake Total 1210 1920 Balance 1210 1920 - Physical Examination General/Neuro: alert & oriented x3 Neck: no JVD present Lungs: CTA Heart: RRR Abdomen: soft Extremities: other: (No edemas) - Telemetry Telemetry Rhythm: SR - Labs Result Diagrams: 05/12/17 04:41 05/12/17 04:41 Troponin/CKMB Troponin I 0.013 ng/mL (< 0.028) 05/09/17 00:23 - Assessment/Plan 1. Chest pain - Cardiac cath on 05/11 revealed normal coronary arteries. On ASA , BBlocker and SOHAM med; No hematoma, bleeding, or mass at Rt radial site 2. HTN - Well controlled with current medication; 3. Dyslipidemia - on Statin medication MAR Reviewed * From Cardiac standpoint, the pt is stable to d/c home. The pt will f/u with Dr Samano's office within 1 month. * Discharge medication: Coreg, Lisinopril, Lipitor, and ASA Review of Systems - Review of Systems Constitutional: reports: no symptoms reported EENTM: reports: no symptoms reported Respiratory: reports: no symptoms reported Cardiac (ROS): reports: no symptoms reported ABD/GI: reports: no symptoms reported : reports: no symptoms reported Musculoskeletal: reports: no symptoms reported Skin: reports: no symptoms reported Neurological: reports: no symptoms reported
[2017-05-12] MEDS: Lisinopril/Hydrochlorothiazide 10 mg/12.5 mg Tablet PO SCH (08:30)
[2017-05-12] MEDS: Carvedilol 3.125 MG TAB PO SCH (08:31)
[2017-05-12] MEDS: Aspirin 325 MG TAB PO SCH (08:31)
[2017-05-12] MEDS ORDERED: Sodium Chloride 0.9% 500 ML IV SCH (09:00)
[2017-05-12 11:05] VITALS: BMI 48.6
[2017-05-12 12:26] VITALS: BP 131/66; TEMP 97.6
--- NOTE | 2017-05-12 18:05 | DIS ---
DATE OF ADMISSION: 05/08/2017 DATE OF DISCHARGE: 05/12/2017 PRIMARY CARE PROVIDER: Cliff Youngblood. DISCHARGE DIAGNOSES: 1. Chest pain, resolved. 2. Acute renal insufficiency. PROCEDURES DONE: 1. A 2D echocardiogram on 05/09/2017 showing left ventricular ejection fraction at 60%-65% and norm al right ventricular size and function. 2. Cardiac catheterization on 05/11/2017, showing normal coronaries. 3. CT angiogram of the chest on 05/11/2017, which did not show any pulmonary embolus involving the central pulmonary arteries. There was no evidence of aortic dissection. The study was a suboptimal evaluation of the subsegmental and segmental pulmonary arteries. She has a calcified granuloma in the right middle lobe. DISCHARGE MEDICATIONS: Aspirin 81 mg daily, Lipitor 20 mg at bedtime, fexofenadine 60 mg daily. CONDITION OF PATIENT AT THE TIME OF DISCHARGE: Stable. I assessed Ms. Lott on the day of discharg e. She denies any chest pain or shortness of breath. PHYSICAL EXAMINATION: VITAL SIGNS: Stable. HEART: S1 and S2 are heard, regular. LUNGS: Clear to auscultation bilaterally. HOSPITAL COURSE: Ms. Lott is a pleasant 56-year-old lady who was admitted to [facility] for chest pain, suspected to be due to unstable angina. She was treated with low molec ular weight heparin and aspirin. She was also started on statin. She was seen by Cardiology Mychal gutierrez. She had 2D echocardiogram as well as cardiac catheterization, results are summarized above. She also had CT scan of the chest which ruled out central pulmonary embolism. On the day of discharge, she had an elevation in her creatinine to 1.30 from 0.91. She received 500 mL of normal saline bolus and her creatinine trended down to 1.15. She has been advised to stop li sinopril and hydrochlorothiazide until it can be reassessed by her primary care provider. She will also likely need her liver function tests followed, since she is on statin. During this hospitalization, she has triglycerides 76, cholesterol 183, LDL cholesterol 127, HDL cho lesterol 41. On the day of discharge, she has sodium 139, potassium 4.0, creatinine 1.15, white count 7,000, hemo globin 13.2, and platelet count 243. Many thanks for allowing me to participate in your patient's care. Please feel free to contact me w ith any questions or concerns. DISCHARGE DESTINATION: Home. TOTAL AMOUNT OF TIME SPENT COORDINATING THIS DISCHARGE: 33 minutes.
== END 2017-05-12 13:19 | disposition home or self-care (01) | DRG 287 ==
LOC: ERS 18:03 → IMCU/EMU 20:25 → 2SE 05-09 20:09
PROVIDERS: ADMIT Internal Medicine; ATTEND Internal Medicine
PROC: 4A023N7 Measurement of Cardiac Sampling and Pressure, Left Heart, Percutaneous Approach (ICD-10-PCS; principal; 2017-05-11)
PROC: B2111ZZ Fluoroscopy of Multiple Coronary Arteries using Low Osmolar Contrast (ICD-10-PCS; 2017-05-11)
PROC: B2151ZZ Fluoroscopy of Left Heart using Low Osmolar Contrast (ICD-10-PCS; 2017-05-11)
DX: R07.9 Chest pain, unspecified (principal); I10 Essential (primary) hypertension; N28.9 Disorder of kidney and ureter, unspecified; J45.909 Unspecified asthma, uncomplicated; E78.5 Hyperlipidemia, unspecified; R01.1 Cardiac murmur, unspecified; Z82.49 Family history of ischemic heart disease and other diseases of the circulatory system
CPT/HCPCS: 36415; 36416; 71010; 71275; 80048; 80061; 84484; 85025; 90471; 90682; 93005; 93306; 93458; 96372; 96374; C1769; G0008; J1644; J1650; J2270; J2405; Q2036

== ENCOUNTER 2017-11-30 20:26 | Emergency (ER) | payer OTHER, SELFPAY ==
--- NOTE | 2017-11-30 22:10 | RAD ---
LEFT FOOT THREE VIEWS: 11/30/2017 HISTORY: Foot pain. No injury. FINDINGS: There is mild degenerative changes at the first metatarsophalangeal joint. There is prominent degenerative change involving the mid foot, medially, with multilevel joint space narrowing, subchondral sclerosis, and prominent osteophyte formation, dorsally/medially. There is en thesophyte formation at the insertion of the Achilles tendon and at the origin of the plantar aponeur osis. No displaced fracture or dislocation. IMPRESSION: Degenerative change with no acute osseous abnormality. POS: [facility]
== END 2017-11-30 21:42 | disposition home or self-care (01) ==
LOC: SCSER 20:26
DX: M19.072 Primary osteoarthritis, left ankle and foot (principal); I10 Essential (primary) hypertension; Z79.899 Other long term (current) drug therapy